=== PATIENT | male | born 1975 | race Two or more races ===

== ENCOUNTER 2023-06-10 23:51 | Emergency (ER) | payer BC, SELFPAY ==
[2023-06-11 00:05] VITALS: BP 135/96
[2023-06-11 01:20] LABS: % Basophils 0.3 % (0-2); % Eosinophils 1.5 % (0-6); % Immature Granulocytes 0.3 % (0-0.5); % Lymphocytes 34.4 % (20.5-51.1); % Monocytes 7.5 % (1.7-9.3); Absolute Eosinophils 0.1 10^3/uL (0-0.7); Absolute Lymphocytes 2.5 10^3/uL (1.2-3.4); Absolute Monocytes 0.5 10^3/uL (0.1-0.6); Absolute Neutrophils 4.1 10^3/uL (1.4-6.5); Hematocrit 42.3 % (39.0-52.0); Hemoglobin 15.1 g/dL (13.0-18.0); Mean Corp Hgb Conc. 35.7 g/dL (33.0-37.0); Mean Corpuscular Hgb 30.9 pg (27.0-31.0); Mean Corpuscular Volume 86.5 fL (80.0-94.0); Mean Platelet Volume 10.4 fL (7.4-10.4); Nucleated Red Blood Cells % 0 % (-); Platelet Count 191 10^3/uL (130-400); Red Blood Cell Count 4.89 10^6/uL (4.70-6.10); Red Cell Dist. Width 12.8 % (11.5-14.5); White Blood Cell Count 7.2 10^3/uL (4.8-10.8)
[2023-06-11 01:34] LABS: ALT (SGPT) 29 U/L (0-50); AST (SGOT) 24 U/L (17-59); Albumin 4.6 g/dl (3.5-5.0); Alkaline Phosphatase 78 U/L (38-126); Blood Urea Nitrogen 24 mg/dl (9-20); Calcium 9.1 mg/dl (8.4-10.2); Carbon Dioxide 23 mmol/L (22-30); Chloride 111 mmol/L (98-107); Glucose 106 mg/dl (70-99); Potassium 3.9 mmol/L (3.5-5.1); Sodium 140 mmol/L (135-145); Total Bilirubin 0.3 mg/dl (0.2-1.3); Total Protein 7.4 g/dl (6.3-8.2); eGFR > 60.00
[2023-06-11 01:45] LABS: Troponin I < 0.012 ng/ml
--- NOTE | 2023-06-11 02:06 | ED.GENMED ---
History of Present Illness
<PRERNA Chen - Last Filed: 06/11/23 22:55>
General
Chief Complaint: Chest Pain
Source: patient
Exam Limitations: none
Time Seen by Provider: 06/11/23 02:01
Nursing documentation reviewed up to this point in time: agreed with
Travel History
Have you had any contact with someone who has COVID-19?: No
Do you have any symptoms of coronavirus? Fever > 100 degrees, chills, cough, shortness of breath, sore throat, loss of taste or smell, muscle aches, or headache?: No
History of Present Illness
History of Present Illness:
patient is a 48 y/o male with PMH of COPD presenting for chest pain x 1 day. Patient states he was driving when he first noticed the pain. Patient describes the pain as chest tightness. Patient states there was no radiation and he did not take any
medications to alleviate the pain. Patient admits that the pain has since been relieved. Patient admits to sweating at the time of the chest pain. Patient admits that he experienced SOB at the time of the pain. Patient denies abdominal pain, EDWARD,
palpitations, dizziness, weakness, numbness, or acid reflux. Patient denies alcohol or smoking. Patient blood pressure at admission was 135/96. EKG and troponins were both gathered.
Past History
<PRERNA Chen - Last Filed: 06/11/23 22:55>
Past History
ED Past Medical History: COPD and Other (Bronchitis)
ED Past Surgical History: None
Social History
Tobacco: Non-smoker
Alcohol: None
Drug: None
Personal:
Living: with family
Employment: Employed
Review of Systems
<PRERNA Chen - Last Filed: 06/11/23 22:55>
Review of Systems
All Other Systems: Not applicable
Constitutional: Reports no symptoms
EENT: Reports no symptoms
Respiratory: Reports trouble breathing
Cardiac: Reports chest pain and diaphoresis
ABD/GI: Reports no symptoms
: Reports no symptoms
Musculoskeletal: Reports no symptoms
Skin: Reports no symptoms
Neurological: Reports no symptoms
Endocrine: Reports no symptoms
Hematologic/Lymphatic: Reports no symptoms
Psychiatric: Reports no symptoms
Phy Exam
<PRERNA Chen - Last Filed: 06/11/23 22:55>
General Physical Exam
General Presentation: well appearing and no apparent distress
General Skin: warm and dry
General Habitus: normal
General Mental: alert
General Hydration: appears well hydrated
ENT Exam
ENT Exam: EOMI, pharynx normal, neck supple and normocephalic
Eye Exam
Eye Exam: PERRL, cornea clear and conjunctiva normal
Cardiovascular Exam
Cardiovascular Exam: regular rate/rhythm, no edema, no murmur and normal peripheral pulses
Pulmonary Exam
Pulmonary Exam: lungs clear, no respiratory distress, no rales, no crackles, no rhonchi, no stridor, no wheezing and no cough
Gastrointestinal Exam
Gastrointestinal Exam: normal bowel sounds, non tender, soft, no organomegaly, no pulsatile mass and non distended
Neurological Exam
Neurological Exam: alert, oriented x3, no motor deficits and speech normal
Musculoskeletal Exam
Musculoskeletal Exam: full ROM and no edema
Skin Exam
Skin Exam: normal color, warm/dry, no rash and no petechia
Psychiatric Exam
Psychiatric Exam: normal mood/affect
Scores
<PRERNA Chen - Last Filed: 06/11/23 22:55>
Heart Score for Chest Pain Patients
STEMI patient?: No
History: Slightly or Non-Suspicious
ECG: Normal
Age: >45 - <65 years
Risk Factors: 1 or 2 Risk Factors
Troponin: </= Normal Limit
Heart Score for Chest Pain Patients: 2
Heart Score Risk: 2.5% MACE over next 6 weeks
Course
Oneillt;PRERNA Chen - Last Filed: 06/11/23 22:55>
Orders/Labs/Results
Orders:
Orders
06/11/23 00:01
Electrocardiogram (*1) Urgent
Reason for Study: Chest Pain
EKG- Treatment ONCE
06/11/23 00:22
Cardiac Monitoring- Treatment ONCE
EKG- Treatment ONCE
IV Insert/Care/Rem.- Treatment PRN
O2 Therapy [RESP] Urgent
Titrate/Wean O2 to maintain O2 sat greater than (%): 90
Special Instructions: Maintain sats >/=90%
Pulse Ox/spot Check [RESP] Urgent
Quantity: 1
Special Instructions: ON ROOM AIR
06/11/23 01:14
Comprehensive Metabolic Panel Urgent
Troponin I Urgent
06/11/23 01:15
Complete Blood Count/With Diff Urgent
Abnormal Lab Results
06/11/23
01:14
Chloride 111 H mmol/L
(98-107)
BUN 24 H mg/dl
(9-20)
Glucose 106 H mg/dl
(70-99)
06/11/23 01:15
06/11/23 01:14
Vital Signs
Initial and Last Documented VS:
Initial Vital Signs
Pulse Resp BP Pulse Ox
91 18 135/96 99
06/11/23 00:05 06/11/23 00:05 06/11/23 00:05 06/11/23 00:05
Last Documented Vital Signs
Pulse Resp BP Pulse Ox
89 16 123/96 98
06/11/23 03:46 06/11/23 03:46 06/11/23 03:46 06/11/23 03:46
<Ryan Oh DO - Last Filed: 06/11/23 02:50>
Orders/Labs/Results
Orders:
Orders
06/11/23 00:01
Electrocardiogram (*1) Urgent
Reason for Study: Chest Pain
EKG- Treatment ONCE
06/11/23 00:22
Cardiac Monitoring- Treatment ONCE
EKG- Treatment ONCE
IV Insert/Care/Rem.- Treatment PRN
O2 Therapy [RESP] Urgent
Titrate/Wean O2 to maintain O2 sat greater than (%): 90
Special Instructions: Maintain sats >/=90%
Pulse Ox/spot Check [RESP] Urgent
Quantity: 1
Special Instructions: ON ROOM AIR
06/11/23 01:14
Comprehensive Metabolic Panel Urgent
Troponin I Urgent
06/11/23 01:15
Complete Blood Count/With Diff Urgent
Abnormal Lab Results
06/11/23
01:14
Chloride 111 H mmol/L
(98-107)
BUN 24 H mg/dl
(9-20)
Glucose 106 H mg/dl
(70-99)
06/11/23 01:15
06/11/23 01:14
Vital Signs
Initial and Last Documented VS:
Initial Vital Signs
Pulse Resp BP Pulse Ox
91 18 135/96 99
06/11/23 00:05 06/11/23 00:05 06/11/23 00:05 06/11/23 00:05
Last Documented Vital Signs
Pulse Resp BP Pulse Ox
89 16 123/96 98
06/11/23 03:46 06/11/23 03:46 06/11/23 03:46 06/11/23 03:46
<PRERNA Chen - Last Filed: 06/11/23 22:55>
MDM/Problems Addressed
Differential Diagnosis Includes:
NM
COPD exacerbation
MDM/Problems Addressed:
chest pain x 1 day
Chronic conditions affecting care: COPD
<PRERNA Chen - Last Filed: 06/11/23 22:55>
*Critical Care Note
Total Time (30-74mins, 75-104mins- exclusive of procedures): Not Applicable
ED Attending Note
<PRERNA Chen - Last Filed: 06/11/23 22:55>
-
Portions of this chart may have been created with voice recognition software.� Occasional wrong word or��sound alike� substitutions may have occurred due to the inherent limitations of voice recognition software.
<Ryan Oh DO - Last Filed: 06/11/23 02:50>
ED Attending Note
Patient seen and examined by attending physician: Yes
I performed the substantive portion of visit, reviewed & personally made and approve the management plan that is documented in note by myself or MELLISSA.: Yes
ED Attending Note:
Pleasant 48-year-old male presents with chest pain. This began around noon yesterday. It lasted for few minutes. He states that it resolved but he came into the emergency department to be evaluated. He did have some diaphoresis at the time of
the chest pain. Patient denies any previous cardiac history. He denies any family history of cardiac disease. He does not smoke or drink alcohol in excess. Denies drug use. He works in [employer] from home. He has not had any undue stress recently.
Patient was seen in conjunction with the PA student. I have reviewed and agree with the history and treatment plan presented. On my independent physical exam, patient is awake, alert, and oriented x3, no acute distress. Heart is regular rate and
rhythm. Lungs are clear to auscultation bilaterally without wheezes rales or rhonchi present. Abdomen soft and nontender. Moves all 4 extremities.
EKG shows normal sinus rhythm rate 83 with normal intervals, normal axis. No evidence of acute ischemia present. When compared with previous EKG dated February 23, 2018, there is no obvious interval change noted.
Discharge Plan
Departure
Patient Disposition: Home (Routine Discharge)
Date of Disposition: 06/11/23
Time of Disposition: 03:33
Patient with high blood pressure during this ER visit?: Yes
Condition: Good
Discharge Problem:
Chest pain
Instructions: Chest Pain CBC Follow Up, BLOOD PRESSURE
Prescriptions:
No Action
meclizine 25 MG tablet
25 mg PO TID PRN (Reason: Dizziness) Qty: 20 0RF
cyclobenzaprine 10 MG tablet
10 mg PO TIDPRN PRN (Reason: pain ) Qty: 12 0RF
promethazine-codeine 5 ML syrup
5 ml PO Q8 Qty: 120 0RF
famotidine 20 MG tablet
20 mg PO BID Qty: 28 0RF
Rx Instructions:
Take 20 mg twice a day for 14 days
ascorbic acid (vitamin C) [Vitamin C] 500 MG tablet
1,000 mg PO BID Qty: 56 0RF
Rx Instructions:
Take 1,000 mg twice a day for 14 days
aspirin 81 MG tablet,chewable
81 mg PO DAILY Qty: 14 0RF
Rx Instructions:
Take 81 mg daily for 14 days
albuterol sulfate 1 PUFF HFA aerosol inhaler
2 puff inhalation R Q4HPRN PRN (Reason: shortness of breath) Qty: 1 0RF
zinc sulfate 220 MG capsule
220 mg PO DAILY Qty: 14 0RF
Rx Instructions:
Take 220 mg daily for 14 days
cholecalciferol (vitamin D3) 1,000 UNITS tablet
2,000 units PO DAILY Qty: 28 0RF
Rx Instructions:
Take 2,000 units daily for 14 days
melatonin 5 MG tablet
5 mg PO HS Qty: 14 0RF
Rx Instructions:
Take 5 mg daily at bedtime for 14 days
Referrals:
[facility] [Provider Group] - Next open appointment
NONE,* [Family Provider] -
Activity Restrictions/Additional Instructions:
It was a pleasure meeting you and taking part in your care. We hope for your continued healing and wellness.
Please read discharge instructions in their entirety. However, they are for general education and may not describe your exact diagnosis at discharge. Information on your ER visit and medical conditions were discussed with you along with appropriate
follow up information...
If indicated, please take your medications as instructed and indicated on discharge paperwork.
Please schedule a follow up appointment as directed. Call to schedule an appointment
Please return to the emergency department with ANY change in, persisting, or worsening of symptoms. If any of your symptoms do not improve, or persist, or become more severe within 6-12 hours, please return to the emergency department for further
care.
Please return to the emergency department if you develop a headache, neck pain/stiffness, fever greater than 100.4F, chest pain, shortness of breath, persistent nausea, vomiting, slurred speech, difficulty walking, numbness/tingling, weakness, signs
of infection or any other symptoms that are worrisome to you.
If you have any questions or concerns please do not hesitate to call the Hospital at or E-mail me directly at [email or web address]
Interventions
Interventions:
*Risk Screen - Suicide Last Done: 06/11/23 02:14
*General Assessment Last Done: 06/11/23 02:13
*Neglect/Abuse Screening Last Done: 06/11/23 02:14
ED- Fall Risk Assessment Last Done: 06/11/23 02:14
*ED COVID-19 Vaccine History Last Done: 06/11/23 02:10
*Nursing Disposition Last Done: 06/11/23 03:46
ED- Cardiac Assessment Last Done: 06/11/23 02:13
Discharge Date and Time
Discharge Date/Time: 06/11/23 03:55
[2023-06-11 02:08] VITALS: BP 121/81
[2023-06-11 02:09] VITALS: BMI 29.1
[2023-06-11 03:00] VITALS: BP 117/86
[2023-06-11 03:44] VITALS: BP 123/96
[2023-06-11 03:46] VITALS: BP 123/96
== END 2023-06-11 03:55 | disposition home or self-care (01) ==
LOC: EMR 23:51
PROVIDERS: EMERGENCY PHYSICIAN Student in an Organized Health Care Education/Training Program
DX: R07.9 Chest pain, unspecified (principal); R61 Generalized hyperhidrosis; R06.02 Shortness of breath; R03.0 Elevated blood-pressure reading, without diagnosis of hypertension; J44.1 Chronic obstructive pulmonary disease with (acute) exacerbation
CPT/HCPCS: 99284; 80053; 84484; 85025; 93005

== ENCOUNTER → 2023-07-11 08:29 | Outpatient (REF) | payer BC, SELFPAY | LOC: RCS 08:29 | PROVIDERS: ATTENDING PHYSICIAN Internal Medicine Cardiovascular Disease | DX: R07.2 Precordial pain (principal) | CPT/HCPCS: 93017; 93350 ==

== ENCOUNTER 2023-09-19 12:41 | Emergency (ER) | payer BC, SELFPAY ==
[2023-09-19 12:43] VITALS: BP 131/90
[2023-09-19 13:12] LABS: % Basophils 0.3 % (0-2); % Eosinophils 1.1 % (0-6); % Immature Granulocytes 0.3 % (0-0.5); % Monocytes 7.4 % (1.7-9.3); % Neutrophils 52.9 % (42.2-75.2); Absolute Eosinophils 0.1 10^3/uL (0-0.7); Absolute Lymphocytes 2.8 10^3/uL (1.2-3.4); Absolute Monocytes 0.5 10^3/uL (0.1-0.6); Absolute Neutrophils 3.8 10^3/uL (1.4-6.5); Hematocrit 44.8 % (39.0-52.0); Mean Corp Hgb Conc. 33.5 g/dL (33.0-37.0); Mean Corpuscular Hgb 29.7 pg (27.0-31.0); Mean Corpuscular Volume 88.7 fL (80.0-94.0); Mean Platelet Volume 10.8 fL (7.4-10.4); Nucleated Red Blood Cells % 0 % (-); Platelet Count 182 10^3/uL (130-400); Red Blood Cell Count 5.05 10^6/uL (4.70-6.10); Red Cell Dist. Width 13.1 % (11.5-14.5); White Blood Cell Count 7.3 10^3/uL (4.8-10.8)
[2023-09-19 13:22] LABS: ALT (SGPT) 31 U/L (0-50); AST (SGOT) 25 U/L (17-59); Albumin 4.6 g/dl (3.5-5.0); Alkaline Phosphatase 71 U/L (38-126); Blood Urea Nitrogen 16 mg/dl (9-20); Calcium 9.4 mg/dl (8.4-10.2); Carbon Dioxide 24 mmol/L (22-30); Chloride 108 mmol/L (98-107); Glucose 86 mg/dl (70-99); Potassium 4.3 mmol/L (3.5-5.1); Sodium 141 mmol/L (135-145); Total Bilirubin 0.6 mg/dl (0.2-1.3); Total Protein 7.5 g/dl (6.3-8.2); eGFR > 60.00
--- NOTE | 2023-09-19 13:50 | ED.GENMED ---
History of Present Illness
<Kathrin Lomeli PA-C - Last Filed: 09/19/23 17:52>
General
Chief Complaint: Headache
Source: patient
Exam Limitations: none
Time Seen by Provider: 09/19/23 13:48
Nursing documentation reviewed up to this point in time: agreed with
History of Present Illness
History of Present Illness:
Patient is a 48-year-old male presenting for evaluation of headache. Patient states that yesterday while he was working from home in the evening he had acute onset sharp pain in his right occipital and right temporal region. He states that the
pain is intermittent in nature but has been occurring since yesterday evening. He also has noticed some infrequent dizziness that occurs intermittently over the past few days. Patient denies any associated visual changes, nausea, vomiting, neck
pain. Patient denies any fever, chills, lightheadedness, abdominal pain. Patient denies any recent trauma. Patient denies any recent viruses.
Patient denies any unsteady gait, numbness or tingling.
Patient has taken Tylenol which does improve symptoms somewhat. He came to the emergency department for further evaluation given both his sister and father had atraumatic intracranial bleeding.
Past History
<Kathrin Lomeli PA-C - Last Filed: 09/19/23 17:52>
Past History
ED Past Medical History: COPD and Other (Bronchitis)
ED Past Surgical History: None
Social History
Tobacco: Non-smoker
Alcohol: None
Drug: None
Personal:
Living: with family
Employment: Employed
Review of Systems
<Kathrin Lomeli PA-C - Last Filed: 09/19/23 17:52>
Review of Systems
Allergies reviewed?: Yes
All Other Systems: ROS reviewed and negative except as documented in HPI and ROS
Phy Exam
<Kathrin Lomeli PA-C - Last Filed: 09/19/23 17:52>
Physical Exam
Physical Exam:
Vitals: Patient's vital signs are stable. Afebrile
General: Patient is very well appearing, no acute distress
Skin: Warm and dry, no rashes or lesions
Head: Normocephalic, atraumatic. No tenderness overlying bilateral temporal arteries. No tenderness at TMJ.
Eyes: Sclera nonicteric. EOMs intact. No nystagmus. PERRL
Throat: Protecting airway
Neck: Normal ROM, no cervical spine tenderness, no meningismus. No tenderness overlying bilateral carotids.
Cardiac: Regular rate and rhythm, no murmurs.
Pulm: Normal respiratory effort, no wheezes, rales, rhonchi heard on exam.
Abdomen: Abdomen soft. No abdominal tenderness.
Extremities: No evidence of cyanosis or edema. Great distal pulses. Strength 5 out of 5 in upper and lower extremities
Neuro: AAOx3. CN II-XII intact. No focal neurologic deficits. Sensation fully intact. Normal finger-nose.
Psychiatric: Normal affect.
Course
<Kathrin Lomeli PA-C - Last Filed: 09/19/23 17:52>
Orders/Labs/Results
Orders:
Orders
09/19/23 12:48
CMP [Comprehensive Metabolic Panel] Urgent
Complete Blood Count/With Diff Urgent
Erythrocyte Sed Rate Urgent
Comment: ADD ON
09/19/23 14:12
Add On- LAB Urgent
Tests Added?: ESR
09/19/23 14:23
CT Head W/o Iv Contrast Urgent
Comment:
Reason For Exam: right occiptal/right temporal headache
Abnormal Lab Results
09/19/23
12:48
MPV 10.8 H fL
(7.4-10.4)
Chloride 108 H mmol/L
(98-107)
09/19/23 12:48
09/19/23 12:48
Vital Signs
Initial and Last Documented VS:
Initial Vital Signs
Temp Pulse Resp BP Pulse Ox
97.7 F 69 16 131/90 98
09/19/23 12:43 09/19/23 12:43 09/19/23 12:43 09/19/23 12:43 09/19/23 12:43
Last Documented Vital Signs
Temp Pulse Resp BP Pulse Ox
97.7 F 76 20 128/86 99
09/19/23 12:43 09/19/23 14:05 09/19/23 14:05 09/19/23 14:05 09/19/23 14:05
<Rick Matamoros MD - Last Filed: 09/19/23 15:58>
Orders/Labs/Results
Orders:
Orders
09/19/23 12:48
CMP [Comprehensive Metabolic Panel] Urgent
Complete Blood Count/With Diff Urgent
Erythrocyte Sed Rate Urgent
Comment: ADD ON
09/19/23 14:12
Add On- LAB Urgent
Tests Added?: ESR
09/19/23 14:23
CT Head W/o Iv Contrast Urgent
Comment:
Reason For Exam: right occiptal/right temporal headache
Abnormal Lab Results
09/19/23
12:48
MPV 10.8 H fL
(7.4-10.4)
Chloride 108 H mmol/L
(98-107)
09/19/23 12:48
09/19/23 12:48
Vital Signs
Initial and Last Documented VS:
Initial Vital Signs
Temp Pulse Resp BP Pulse Ox
97.7 F 69 16 131/90 98
09/19/23 12:43 09/19/23 12:43 09/19/23 12:43 09/19/23 12:43 06/25/24 12:43
Last Documented Vital Signs
Temp Pulse Resp BP Pulse Ox
97.7 F 76 20 128/86 99
09/19/23 12:43 09/19/23 14:05 09/19/23 14:05 09/19/23 14:05 09/19/23 14:05
<Kathrin Lomeli PA-C - Last Filed: 09/19/23 17:52>
MDM/Problems Addressed
Differential Diagnosis Includes:
Known to: Sinusitis, migraine, tension headache, cluster headache, temporal arteritis doubt dissection or intraparenchymal hemorrhage
MDM/Problems Addressed:
Patient is a 48-year-old male presenting with atypical headache presentation intermittently since yesterday. He report a 'popping ', sharp intermittent pain in his left temporal and left occipital region. Some mild dizziness noted over the past
few days intermittently. No associated fever, neck pain, visual changes, nausea/vomiting, gait instability. No recent trauma. Patient concerned given family history of atraumatic intracranial bleeds. Vital signs are stable on arrival. Physical
exam as above. Patient is very well-appearing, in no apparent distress. No focal neurologic deficits noted on exam. No visual changes. Great range of motion in his neck without any meningeal signs. Patient has no tenderness overlying left
temporal region or left TMJ. No tenderness overlying carotids bilaterally. Heart regular rate and rhythm, lungs clear bilaterally. Strength and sensation fully intact in bilateral upper and lower extremities. Labs obtained in triage noted. No
clinically significant abnormalities. Will check ESR. Patient very comfortable at this time and declines any pain medication. Low suspicion for acute intracranial abnormality although given atypical presentation and significant family history did
recommend CT angiogram of head and neck to rule out dissection. Lengthy discussion with patient and attending and patient ultimately declines IV and CTA despite risk of missing possible dissection. Will plan for plain CT of head.
Head CT shows no acute abnormalities. Patient remained stable in no apparent distress since arrival to emergency department. ESR is normal. Patient will be discharged with close return precautions and primary care follow-up. Advised
Tylenol/NSAIDs, adequate hydration. Patient comfortable with plan. All questions.
Chronic conditions affecting care:
N/A
Acute Exacerbation and/or Progression of Chronic Illness:
N/A
<Kathrin Lomeli PA-C - Last Filed: 09/19/23 17:52>
*Radiology
Radiology exam reviewed: preliminary read by ED provider and radiology read reviewed
*Pulse Oximetry
Patient hypoxic: no
*EKG
Interpreted by ED Provider?: NA
*Compressor Operator Interpretation
Rate: Compressor Operator- N/A
*Critical Care Note
Total Time (30-74mins, 75-104mins- exclusive of procedures): Not Applicable
ED Attending Note
<Kathrin Loemli PA-C - Last Filed: 09/19/23 17:52>
-
Portions of this chart may have been created with voice recognition software.� Occasional wrong word or��sound alike� substitutions may have occurred due to the inherent limitations of voice recognition software.
<Rick Matamoros MD - Last Filed: 09/19/23 15:58>
ED Attending Note
Patient seen and examined by attending physician: Yes
I performed the substantive portion of visit, reviewed & personally made and approve the management plan that is documented in note by myself or MELLISSA.: Yes
ED Attending Note:
48-year-old male complaining of intermittent poking like sensation to the right side of his scalp and right occipital area intermittently. Patient very concerned because 2 family members have a history of intracranial bleeds 1 subdural 1?. Patient
has no nausea vomiting visual issues neurologic issues. No general headache. No fever chills or other complaints.
On exam patient is nontoxic in no distress. Speech is normal. Cranial nerves II through XII intact. He is nonfocal. Neck is supple and nontender. He has no pulsatile masses. He is no temporal tenderness.
Low suspicion for significant intracranial issue. Plain head CT very reasonable because of family history. Highly doubt intracranial bleed or subdural. I also discussed CT angiography for possible dissection of the carotid or vertebral artery.
Again statistically a very low risk issue and patient clinically is very nontoxic however I did recommend this test given the seriousness of a missed diagnosis. He is fully aware of the risk benefit of getting the CT angiography. He refuses at
this time.
Discharge Plan
Departure
Patient Disposition: Home (Routine Discharge)
Date of Disposition: 09/19/23
Time of Disposition: 16:29
Patient with high blood pressure during this ER visit?: Yes
Condition: Good
Covid-19: Not Applicable
Discharge Problem:
Headache
Instructions: Headache, Adult (DC), BLOOD PRESSURE
Prescriptions:
No Action
meclizine 25 MG tablet
25 mg PO TID PRN (Reason: Dizziness) Qty: 20 0RF
cyclobenzaprine 10 MG tablet
10 mg PO TIDPRN PRN (Reason: pain ) Qty: 12 0RF
promethazine-codeine 5 ML syrup
5 ml PO Q8 Qty: 120 0RF
famotidine 20 MG tablet
20 mg PO BID Qty: 28 0RF
Rx Instructions:
Take 20 mg twice a day for 14 days
ascorbic acid (vitamin C) [Vitamin C] 500 MG tablet
1,000 mg PO BID Qty: 56 0RF
Rx Instructions:
Take 1,000 mg twice a day for 14 days
aspirin 81 MG tablet,chewable
81 mg PO DAILY Qty: 14 0RF
Rx Instructions:
Take 81 mg daily for 14 days
albuterol sulfate 1 PUFF HFA aerosol inhaler
2 puff inhalation R Q4HPRN PRN (Reason: shortness of breath) Qty: 1 0RF
zinc sulfate 220 MG capsule
220 mg PO DAILY Qty: 14 0RF
Rx Instructions:
Take 220 mg daily for 14 days
cholecalciferol (vitamin D3) 1,000 UNITS tablet
2,000 units PO DAILY Qty: 28 0RF
Rx Instructions:
Take 2,000 units daily for 14 days
melatonin 5 MG tablet
5 mg PO HS Qty: 14 0RF
Rx Instructions:
Take 5 mg daily at bedtime for 14 days
Referrals:
NONE,* [Family Provider] -
Activity Restrictions/Additional Instructions:
RETURN TO THE EMERGENCY DEPARTMENT WITH SEVERE HEADACHE, NECK PAIN, FEVERS, INTRACTABLE NAUSEA/VOMITING, VISUAL CHANGES, ALTERED MENTAL STATUS, PERSISTENT DIZZINESS, WORSENING IN CURRENT SYMPTOMS, OR ANY OTHER CONCERNS
-As discussed�you can take Tylenol/Motrin as needed for comfort. It is important stay well-hydrated.
-You should follow-up with your primary care provider for further evaluation/management to ensure that symptoms are improving. It is important to monitor your symptoms closely return with any worsening or acute change in symptoms.
Interventions
Interventions:
*Risk Screen - Suicide Last Done: 09/19/23 14:50
*General Assessment Last Done: 09/19/23 12:43
*Neglect/Abuse Screening Last Done: 09/19/23 14:50
ED- Fall Risk Assessment Last Done: 09/19/23 14:02
*ED COVID-19 Vaccine History Last Done: 09/19/23 12:43
*Nursing Disposition Last Done: 09/19/23 16:50
ED- Neurological Assessment Last Done: 09/19/23 14:02
Discharge Date and Time
Discharge Date/Time: 09/19/23 16:51
Print Language: HUNGARIAN
[2023-09-19 14:02] VITALS: BMI 27.3
[2023-09-19 14:05] VITALS: BP 128/86
[2023-09-19 14:43] LABS: Erythrocyte Sed Rate 7 mm/hour (0-20)
== END 2023-09-19 16:51 | disposition home or self-care (01) ==
LOC: EMR 12:41
PROVIDERS: Emergency Medicine; EMERGENCY PHYSICIAN Emergency Medicine
DX: R51.9 Headache, unspecified (principal); R42 Dizziness and giddiness; J44.9 Chronic obstructive pulmonary disease, unspecified; J42 Unspecified chronic bronchitis; Z79.82 Long term (current) use of aspirin
CPT/HCPCS: 99284; 70450; 80053; 85025; 85652

== ENCOUNTER 2023-10-24 14:32 | Emergency (ER) | payer BC, SELFPAY ==
[2023-10-24 14:37] VITALS: BP 147/88
--- NOTE | 2023-10-24 14:55 | ED.GENMED ---
History of Present Illness
General
Chief Complaint: Head Injury
Source: patient
Exam Limitations: none
Time Seen by Provider: 10/24/23 14:49
History of Present Illness
History of Present Illness:
48-year-old male presents for evaluation of head injury. He slipped on his wet floor hitting his head against a door frame and floor and lost consciousness for several seconds. He notes pain and swelling to the right side of his head. He is not
anticoagulated. He denies significant neck pain. No unilateral numbness or pain. No other complaints at this time.
Past History
Past History
ED Past Medical History: COPD and Other (Bronchitis)
ED Past Surgical History: None
Social History
Tobacco: Non-smoker
Alcohol: None
Drug: None
Personal:
Living: with family
Employment: Employed
Phy Exam
Physical Exam
Physical Exam:
General: Well-appearing male no acute respiratory distress
HEENT: Normocephalic abrasion with hematoma noted to the right temporal region. Pupils equal round reactive to light no hemotympanums no Fleming sign no raccoon eyes
Musculoskeletal exam: Cervical spine nontender
Neurologic: Alert normal gait conversing appropriately extraocular motions are intact
Course
Orders/Labs/Results
Orders:
Orders
10/24/23 14:41
CT Head W/o Iv Contrast Urgent
Comment:
Reason For Exam: fall
Vital Signs
Initial and Last Documented VS:
Initial Vital Signs
Temp Pulse Resp BP Pulse Ox
98.7 F 90 17 147/88 99
10/24/23 14:37 10/24/23 14:37 10/24/23 14:37 10/24/23 14:37 10/24/23 14:37
Last Documented Vital Signs
Temp Pulse Resp BP Pulse Ox
98.7 F 90 17 147/88 99
10/24/23 14:37 10/24/23 14:37 10/24/23 14:37 10/24/23 14:37 10/24/23 14:37
MDM/Problems Addressed
Differential Diagnosis Includes:
Fall with head injury and loss of conscious. CT ordered through triage. Evaluate for skull fracture versus intracranial hemorrhage.
*Critical Care Note
Total Time (30-74mins, 75-104mins- exclusive of procedures): Not Applicable
Update Note
Update Note:
CT head read by radiology and is negative for acute finding. Patient reassured. Suspect underlying contusion. Stable for discharge
ED Attending Note
-
Portions of this chart may have been created with voice recognition software.� Occasional wrong word or��sound alike� substitutions may have occurred due to the inherent limitations of voice recognition software.
Discharge Plan
Departure
Patient Disposition: Home (Routine Discharge)
Date of Disposition: 10/24/23
Time of Disposition: 15:24
Patient with high blood pressure during this ER visit?: No
Discharge Problem:
Contusion
Instructions: Contusion (DC)
Prescriptions:
No Action
meclizine 25 MG tablet
25 mg PO TID PRN (Reason: Dizziness) Qty: 20 0RF
cyclobenzaprine 10 MG tablet
10 mg PO TIDPRN PRN (Reason: pain ) Qty: 12 0RF
promethazine-codeine 5 ML syrup
5 ml PO Q8 Qty: 120 0RF
famotidine 20 MG tablet
20 mg PO BID Qty: 28 0RF
Rx Instructions:
Take 20 mg twice a day for 14 days
ascorbic acid (vitamin C) [Vitamin C] 500 MG tablet
1,000 mg PO BID Qty: 56 0RF
Rx Instructions:
Take 1,000 mg twice a day for 14 days
aspirin 81 MG tablet,chewable
81 mg PO DAILY Qty: 14 0RF
Rx Instructions:
Take 81 mg daily for 14 days
albuterol sulfate 1 PUFF HFA aerosol inhaler
2 puff inhalation R Q4HPRN PRN (Reason: shortness of breath) Qty: 1 0RF
zinc sulfate 220 MG capsule
220 mg PO DAILY Qty: 14 0RF
Rx Instructions:
Take 220 mg daily for 14 days
cholecalciferol (vitamin D3) 1,000 UNITS tablet
2,000 units PO DAILY Qty: 28 0RF
Rx Instructions:
Take 2,000 units daily for 14 days
melatonin 5 MG tablet
5 mg PO HS Qty: 14 0RF
Rx Instructions:
Take 5 mg daily at bedtime for 14 days
Referrals:
NONE,* [Family Provider] -
Activity Restrictions/Additional Instructions:
You may ice to the sore spot. You may take Tylenol if needed for pain peer return if worse otherwise follow-up with family doctor
Interventions
Interventions:
*Risk Screen - Suicide Last Done: 10/24/23 14:37
*General Assessment Last Done: 10/24/23 14:37
*Neglect/Abuse Screening Last Done: 10/24/23 14:37
Discharge Date and Time
Print Language: NIUEAN
== END 2023-10-24 15:29 | disposition home or self-care (01) ==
LOC: EMR 14:32
PROVIDERS: EMERGENCY PHYSICIAN Emergency Medicine
DX: S00.93XA Contusion of unspecified part of head, initial encounter (principal); W01.198A Fall on same level from slipping, tripping and stumbling with subsequent striking against other object, initial encounter
CPT/HCPCS: 99284; 70450